=== PATIENT | male | born 1975 | race Caucasian/White ===

== ENCOUNTER 2021-07-01 12:02 | Emergency (ER) | payer BC ==
[2021-07-01 12:07] VITALS: BMI 23.7
[2021-07-01] MEDS ORDERED: LIDOCAINE 5% TOPICAL PATCH TP ONE (12:16)
[2021-07-01] MEDS ORDERED: ACETAMINOPHEN 500 MG TABLET (FP) PO ONE (12:16)
[2021-07-01] MEDS ORDERED: METHOCARBAMOL 500 MG TABLET PO ONE (12:16)
[2021-07-01 12:23] VITALS: BP 136/83; PULSE 73; TEMP 98.1
[2021-07-01] MEDS ORDERED: LIDOCAINE PATCH REMOVAL MC ONE (22:00)
== END 2021-07-01 13:22 | disposition home or self-care (01) ==
LOC: FER 12:02
DX: M54.50 Low back pain, unspecified (principal)
CPT/HCPCS: 99283-25